=== PATIENT | female | born 1970 | race Hispanic/Latino ===

== ENCOUNTER 2018-04-07 20:30 | Outpatient (CLI) | payer BC, MEDICARE | END 2018-04-07 20:31 | disposition home or self-care (01) | LOC: SLEEPLAB 20:30 | PROVIDERS: ATTEND Family Medicine | DX: G47.33 Obstructive sleep apnea (adult) (pediatric) (principal); R40.0 Somnolence; G47.61 Periodic limb movement disorder; F41.8 Other specified anxiety disorders; G47.10 Hypersomnia, unspecified; I10 Essential (primary) hypertension; Z68.23 Body mass index [BMI] 23.0-23.9, adult; Z78.0 Asymptomatic menopausal state | CPT/HCPCS: 95810 ==

== ENCOUNTER 2018-05-10 19:30 | Outpatient (CLI) | payer BC, MEDICARE | END 2018-05-10 19:31 | disposition home or self-care (01) | LOC: SLEEPLAB 19:30 | PROVIDERS: ATTEND Family Medicine | DX: R40.0 Somnolence (principal); F41.9 Anxiety disorder, unspecified; F32.9 Major depressive disorder, single episode, unspecified; E11.9 Type 2 diabetes mellitus without complications; I10 Essential (primary) hypertension; G47.33 Obstructive sleep apnea (adult) (pediatric) | CPT/HCPCS: 95811 ==

== ENCOUNTER 2018-11-10 13:35 | Outpatient (CLI) | payer OTHER, MEDICARE ==
--- NOTE | 2018-11-10 15:21 | BD ---
BONE DENSITOMETRY USING DEXA: Date: 11/10/18 INDICATION: Postmenopausal bone mineral screening evaluation, other disorder of bone density and structure unspec ified. FINDINGS: Lumbar Spine: BMD (g/cm2) L1 0.760 T-Score: -2.0 L2 0.750 T-Score: -2.5 L3 0.830 T-Score: -2.3 L4 0.798 T-Score: -2.5 L1-L4 0.780 T-Score: -2.3 Femoral Neck: 0.630 T-Score: -1.9 Total Femur: 0.800 T-Score: -1.2 IMPRESSION: T-Scores indicate osteopenia, and place the patient at increased risk for fracture. POS: TPC
== END 2018-11-10 13:36 | disposition home or self-care (01) ==
LOC: BICMAMMO 13:35
PROVIDERS: ATTEND Family Medicine
DX: M85.89 Other specified disorders of bone density and structure, multiple sites (principal)
CPT/HCPCS: 77080

== ENCOUNTER 2019-08-02 09:57 | Outpatient (CLI) | payer OTHER, MEDICARE ==
--- NOTE | 2019-08-02 10:34 | ULT ---
US Abdominal: 08/02/2019 12:00 AM CLINICAL HISTORY: Hematuria and elevated LFTs. STUDY: Complete abdominal ultrasound COMPARISON: None. FINDINGS: Liver: Size: Normal. Echogenicity: Hyperechoic consistent with hepatic steatosis. Contour: Smooth. Mass: None. Common bile duct: 3 mm Gallbladder: Normal. Pancreas: Head, body, and tail appear normal. Inferior vena cava: Normal in caliber Aorta: Normal in caliber Spleen: No focal lesions. Spleen measuring 10.0 cm in length. Right kidney: No pelvicalyceal dilatation. Right kidney measuring 10.9 cm in length. 2.0 cm right salvador al cyst Left kidney: No pelvicalyceal dilatation. Left kidney measuring 11.2 cm in length. IMPRESSION: 1. Fatty liver 2. Right renal cyst
--- NOTE | 2019-08-02 10:53 | ULT ---
US Bladder: 08/02/2019 12:00 AM CLINICAL INDICATION: Hematuria. COMPARISON: None. FINDINGS: No focal abnormality is seen in the urinary bladder. IMPRESSION: No significant abnormality
== END 2019-08-02 09:58 | disposition home or self-care (01) ==
LOC: SCSULT 09:57
PROVIDERS: ATTEND Family Medicine
DX: N02.9 Recurrent and persistent hematuria with unspecified morphologic changes (principal); R94.5 Abnormal results of liver function studies; K76.0 Fatty (change of) liver, not elsewhere classified; N28.1 Cyst of kidney, acquired
CPT/HCPCS: 76700; 76856

== ENCOUNTER 2020-11-13 13:02 | Outpatient (CLI) | payer BC, MEDICARE ==
--- NOTE | 2020-11-13 13:35 | RAD ---
EXAM: CHEST TWO VIEWS: 11/13/20 HISTORY: Dyspnea. COMPARISON: 01/21/2008. FINDINGS: Poor inspiratory effort. No significant cardiomegaly or pleural effusion. Fairly extensive patchy mike ateral interstitial, alveolar and ground glass opacity changes throughout both lungs evidence for mike ateral COVID pneumonia. IMPRESSION: Evidence for bilateral COVID pneumonia. POS: OFF
== END 2020-11-13 13:03 | disposition home or self-care (01) ==
LOC: BICRAD 13:02
PROVIDERS: ATTEND Internal Medicine Critical Care Medicine
DX: R06.00 Dyspnea, unspecified (principal); J12.82 Pneumonia due to coronavirus disease 2019
CPT/HCPCS: 71046

== ENCOUNTER 2021-01-09 12:28 | Outpatient (CLI) | payer BC, MEDICARE | END 2021-01-09 12:29 | disposition home or self-care (01) | LOC: BICRAD 12:28 | PROVIDERS: ATTEND Internal Medicine Critical Care Medicine | DX: U07.1 COVID-19 (principal); J12.82 Pneumonia due to coronavirus disease 2019; R06.00 Dyspnea, unspecified | CPT/HCPCS: 71046 ==

== ENCOUNTER 2024-03-07 14:29 | Outpatient (CLI) | payer MEDICARE | END 2024-03-07 14:30 | disposition home or self-care (01) | LOC: BICMAMMO 14:29 | PROVIDERS: ATTEND Nurse Practitioner Family | DX: Z12.31 Encounter for screening mammogram for malignant neoplasm of breast (principal); Z85.6 Personal history of leukemia | CPT/HCPCS: 77063; 77067 ==